=== PATIENT | female | born 1940 | race Caucasian/White ===

== ENCOUNTER 2016-11-14 07:36 | Day surgery (SDC) | payer MEDICARE, OTHER ==
--- NOTE | ~2016-11-14 | OP ---
Record Of Operation [facility] [address] [place]. [address] NAME: FRANCOIS FITCH : 39 STATUS : [facility]#: [id number] AGE: 76 ADM/REG DATE : 11/14/16 MR#: [id number] REPORT SERV DATE: 11/19/16 DICTATED BY: MAO HERRMANN DATE: 11/19/16 REPORT STATUS : Draft TRANSCRIBED BY: GENNY DATE: 11/19/16 DATE OF PROCEDURE: 11/14/2016 PREOPERATIVE DIAGNOSIS: Symptomatic cholelithiasis. POSTOPERATIVE DIAGNOSIS: Chronic cholecystitis and symptomatic cholelithiasis. PROCEDURE: Laparoscopic cholecystectomy. ATTENDING SURGEON: Mao Herrmann M.D. RESIDENT: Noel Wood M.D. ANESTHESIA: General. ESTIMATED BLOOD LOSS: Approximately 50 mL. IV FLUIDS: Approximately 1500 mL crystalloid. SPECIMEN: Gallbladder. DRAINS: None. COMPLICATIONS: None. FINDINGS: The patient had a chronically inflamed gallbladder with stones noted as well and had omental and peritoneal adhesions, was extremely friable. With dissection, the gallbladder fossa was friable and oozy consistent with chronic cholecystitis. INDICATIONS FOR PROCEDURE: This 76-year-old female, who had intermittent right upper quadrant abdominal pain with nausea and vomiting. There was noted to have cholelithiasis. The above procedure was offered to the patient. Risks, benefits, and alternatives were discussed and she expressed verbal understanding and wished to proceed forward for this elective procedure. DESCRIPTION OF PROCEDURE: After informed consent was obtained, the patient was taken back to operative theater. The patient was laid on the operating table in the supine position. The patient was given adequate analgesia and anesthesia and successfully endotracheally intubated. Surgery site was then prepped and draped in a sterile fashion. A formal time- out was then performed. All appropriate preoperative antibiotics were administered. All present in the operating room were in agreement and would like to proceed forward with the procedure. We began by administering local anesthetic infraumbilically. With then used an Optiview trocar to bluntly gain access into the abdominal cavity. A 12 mm trocar was connected to insufflation pneumoperitoneum and 15 mmHg was achieved. The patient tolerated this well. The laparoscope was introduced into the abdominal cavity, revealed no blood, no bile, no injury to the omentum, small bowel mesentery, gained access to abdominal cavity. Record Of Operation [facility] [address] [place]. [address] NAME: FRANCOIS FITCH : 38 STATUS : [facility] PAT#: [id number] AGE: 76 ADM/REG DATE : 11/14/16 MR#: [id number] REPORT SERV DATE: 11/19/16 DICTATED BY: MAO HERRMANN DATE: 11/19/16 REPORT STATUS : Draft TRANSCRIBED BY: GENNY DATE: 11/19/16 The liver did appear healthy. The gallbladder could be seen distended with omental and peritoneal adhesions consistent with chronic cholecystitis. We then placed an 11 mm trocar in the epigastrium and then two 5 mm trocars in the right upper quadrant. Gallbladder was grasped. A combination of blunt dissection and electrocautery was used to remove the omental and peritoneal adhesions freeing the gallbladder, it was then retracted cephalad. The gallbladder was noted to be friable and there was oozing like bleed from all raw surfaces. We then used a combination of cautery and blunt dissection to circumferentially dissect out the cystic duct and cystic artery. Once a critical view of the cystic duct and gallbladder infundibulum junction was identified as well as cystic artery, circumferential dissection around and you could see the liver plate behind it. We then placed two clips on the stay side, one clip on the go side on our cystic duct and the cystic artery. Both these were sharply transected between the clips. We then used electrocautery to remove the gallbladder from the liver bed. The gallbladder was extremely friable. At the end of our dissection, the gallbladder avulsed from the liver bed inherent to the nature of the case secondary to the chronic cholecystitis and the friability of the gallbladder. The gallbladder was then placed into an Endobag and moved out of the surgical view. We then used electrocautery to obtain hemostasis on the gallbladder fossa. We irrigated out the gallbladder fossa in the right upper quadrant until a clear fluid returned. We then grasped the Endobag and removed the Endobag and the gallbladder from the abdominal cavity and passed off the surgical field. We then removed our epigastric trocar. We then placed a single [id number] stitch at the epigastric trocar site to approximate the fascia and fascia reapproximated very well. Remainder of the trocars were removed. There was no bleeding noted from the anterior abdominal wall. Final trocar was removed, and the abdomen was desufflated adequately. We then reapproximated all skin incision sites with 4-0 Monocryl in a simple interrupted subcuticular stitch fashion, skin was reapproximated well, hemostasis noted to have been achieved. Sterile dressings were then applied, sterile drapes were then broken down. The patient was reversed from anesthesia and successfully extubated in the operating room. The patient was awakened, bowel sounds are stable. The patient transferred to the recovery room in stable condition. DICTATED BY: MD AURELIO Price/GENNY Mao Herrmann M.D. / [id number] CC: John Nick M.D.
[~2016-11-14 07:36] MED LIST: ADVAIR INH; ADVAIR250 INH; AZO CRANBERRY PO; AZO STANDARD PO; BEN25 PO; BISR PR; C2 PO; C5; CELEBREX2 PO; COZAAR100 MG PO; CYANO1000T PO; DDAVP0.1 MG PO; DITRO5 PO; EFFEX75 PO; FLEX PO; FOSAMAX70 MG PO; KLONO1 PO; KRILLOIL PO; L20 PO; LACTAID3000 UNIT OR; LIPITOR10 PO; LORT7 PO; MAX25 PO; MELATONIN5 M1 OR; MOVE FREE ULTRA PO; MYRBETRIQ50 MG PO; NEXIUM40 PO; NORCO1 TA2 PO; NORCO1 TAB PO; NORV10 PO; NYSTATPOW TOP; OMEGA-3 KRILL PO; OSTEO BI-FLEX1 EACH PO; PCET PO; PERCOCET; PREM625 PO; PRESERVISION A1 EAC1 PO; PROAIR HFA INH; QUALAQUIN PO; REQUIP1 PO; SINGULAIR1 PO; TIAZA1 PO; ULTRAM50 PO; VESICARE10 MG PO; VITAMIN D31000 UNIT PO; VOLTAREN1 % TOP
== END 2016-11-14 15:32 | disposition home or self-care (01) ==
LOC: SDC 07:36
PROVIDERS: Specialist
PROC: 0FT44ZZ Resection of Gallbladder, Percutaneous Endoscopic Approach (ICD-10-PCS; principal; 2016-11-14 09:00)
DX: K80.10 Calculus of gallbladder with chronic cholecystitis without obstruction (principal); J45.909 Unspecified asthma, uncomplicated; I12.9 Hypertensive chronic kidney disease with stage 1 through stage 4 chronic kidney disease, or unspecified chronic kidney disease; K21.9 Gastro-esophageal reflux disease without esophagitis; N18.3 Chronic kidney disease, stage 3 (moderate); F41.9 Anxiety disorder, unspecified; M19.90 Unspecified osteoarthritis, unspecified site; G25.81 Restless legs syndrome; Z87.440 Personal history of urinary (tract) infections; Z90.49 Acquired absence of other specified parts of digestive tract; Z98.51 Tubal ligation status; Z96.651 Presence of right artificial knee joint; Z98.890 Other specified postprocedural states; Z82.49 Family history of ischemic heart disease and other diseases of the circulatory system; Z83.3 Family history of diabetes mellitus; Z88.0 Allergy status to penicillin; Z96.1 Presence of intraocular lens; Z90.710 Acquired absence of both cervix and uterus; Z98.1 Arthrodesis status; Z79.52 Long term (current) use of systemic steroids; Z79.891 Long term (current) use of opiate analgesic; Z79.899 Other long term (current) drug therapy; Z87.442 Personal history of urinary calculi; Z98.41 Cataract extraction status, right eye; Z98.42 Cataract extraction status, left eye
CPT/HCPCS: 88304; J0690; J1170; J2250; J2405; J2710; J3010

== ENCOUNTER 2016-11-20 08:20 | Inpatient (IN) | payer MEDICARE, OTHER ==
[2016-11-11 15:54] LABS: ASCORBIC ACID (UR NOT ORDER) NEG (NEG); BILIRUBIN, URINE NEGATIVE (NEG); KETONE, URINE NEGATIVE (NEG); WBC (NOT ORDERED) (RFLEX) 3 (0-5)
[2016-11-11 15:56] LABS: LEUKOCYTE ESTERASE(NOT OR TRACE (NEG)
[2016-11-11 17:38] LABS: BASOPHILS 0.8 %; BASOPHILS ABSOLUTE 0.06 10/3/uL (0.0-0.16); EOSINOPHILS 1.3 %; HEMOGLOBIN 12.2 g/dL (12.0-16.0); IMMATURE GRANULOCYTES 0.4 %; IMMATURE GRANULOCYTES ABSOLUTE 0.03 10/3/uL (0.0-0.11); LYMPHOCYTES 12.4 %; LYMPHOCYTES ABSOLUTE 0.98 10/3/uL (0.67-4.30); MEAN CORPUSCULAR HEMOGLOB 27.4 pg (26.0-34.0); MEAN PLATELET VOLUME 9.9 fL (9.2-13.0); MONOCYTES 1.9 %; MONOCYTES ABSOLUTE 0.15 10/3/uL (0.21-1.20); NEUTROPHILS 83.2 %; NEUTROPHILS ABSOLUTE 6.56 10/3/uL (2.02-8.40); PLATELET COUNT 270 10/3/uL (150-400); RED CELL COUNT 4.45 10/6/uL (4.0-5.6); WHITE BLOOD CELLS 7.9 10/3/uL (4.5-10.5)
[2016-11-11 17:39] LABS: HEMATOCRIT 38.2 % (36.0-48.0); MANUAL DIFF NO %; MEAN CORPUS HGB CONC 31.9 g/dL (32.0-36.0); MEAN CORPUSCULAR VOLUME 85.8 fL (80-100)
[2016-11-11 18:04] LABS: A/G RATIO 1.3 (0.7-1.9); ALKALINE PHOSPHATASE 76 U/L (45-117); CALCIUM, SERUM 9.6 MG/DL (8.5-10.4); CHLORIDE, SERUM 101 MMOL/L (96-112); CO2 (CARBON DIOXIDE) 28 MMOL/L (24-34); CREATININE 1.18 MG/DL (0.55-1.02); GFR AFRICAN AMERICAN 52 ML/MIN (>=60); GFR NON AFRICAN AMERICAN 44 ML/MIN (>=60); GLOBULIN 3.1 G/DL (2.5-4.1); POTASSIUM, SERUM 4.5 MMOL/L (3.5-5.3); SGOT(AST) 15 U/L (5-40); SGPT(ALT) 25 U/L (5-65); SODIUM, SERUM 140 MMOL/L (135-148); TOTAL BILIRUBIN 0.5 MG/DL (0-1.2); TOTAL PROTEIN 7.1 G/DL (6.0-8.5)
[2016-11-11 18:06] LABS: BUN (BLOOD UREA NITROGEN) 37 MG/DL (6-23); GLUCOSE, SERUM 110 MG/DL (60-99)
--- NOTE | ~2016-11-20 | OP ---
Record Of Operation [facility] [address] [place]. [address] NAME: FRANCOIS MARTINEZ : 38 STATUS : ADM IN PAT#: [id number] AGE: 76 ADM/REG DATE : 11/20/16 MR#: [id number] REPORT SERV DATE: 11/21/16 DICTATED BY: RODOLFO YOUNG DATE: 11/20/16 REPORT STATUS : Draft TRANSCRIBED BY: GENNY DATE: 11/20/16 DATE OF PROCEDURE: 11/20/2016 PREOPERATIVE DIAGNOSES: 1. Right shoulder pain. 2. End-stage rotator cuff arthropathy with chronic dysfunctional rotator cuff tear. 3. Acromioclavicular joint osteoarthritis. POSTOPERATIVE DIAGNOSES: 1. Right shoulder pain. 2. End-stage rotator cuff arthropathy with chronic dysfunctional rotator cuff tear. 3. Acromioclavicular joint osteoarthritis. OPERATIVE PROCEDURE: 1. Right reverse total shoulder arthroplasty using Tornier Aequalis reverse total shoulder system. 2. Distal clavicular resection. 3. Humeral head autograft impaction technique. 4. Excision of previously placed suture anchors for attempted rotator cuff repair. IMPLANTS USED: One glenoid base plate, one 36 mm glenosphere with a 10-degree inferior tilt, one 36 mm metaphyseal component, one 9 x 100 mm humeral stem, one 36 x 9 mm polyethylene insert, and then one cement restrictor, as well as four 4.5 mm screws, two locking and two nonlocking of the appropriate size. PROCEDURE: The diagnoses listed above as well as the recommended surgical procedure, risks, and benefits thereof were discussed in full detail with Mr. Martinez and family on the morning of 11/20/2016. The patient and family asked appropriate questions which were answered to their satisfaction. Informed consent was signed, witnessed and placed in the chart. The appropriate upper extremity was marked for confirmation and an interscalene block was placed by the anesthesia team with good success. The patient was then wheeled to the operative arena were general endotracheal anesthesia was administered. The patient was placed in the beachchair positioner with all nonoperative extremities well padded and secured for the duration of the case. The patient received 1 gram of Ancef for perioperative antibiosis. The appropriate operative upper extremity was prepped and draped in a typical orthopedic sterile fashion. A surgical pause was performed confirming both the correct patient as well as proper surgical site and procedure. All present were in agreement. All standard anatomic landmarks as well as the superolateral incision site were demarcated using a sterile marking pen. 15 cc of 0.5% Marcaine with epinephrine was injected into the subcuticular layers along the operative incision site. A 10 blade was then used to make an 8 cm incision in the coronal plane off the lateral border of the acromion. Soft tissues were dissected down sharply to expose the Record Of Operation [address] [address] NAME: FRANCOIS MARTINEZ : 39 STATUS : ADM IN PAT#: [id number] AGE: 76 ADM/REG DATE : 11/20/16 MR#: [id number] REPORT SERV DATE: 11/21/16 DICTATED BY: RODOLFO YOUNG DATE: 11/20/16 REPORT STATUS : Draft TRANSCRIBED BY: EGNNY DATE: 11/20/16 deltotrapezius fascia. Full thickness cutaneous flaps were reflected anteriorly and posteriorly. The acromioclavicular joint was identified and electrocautery was used to skeletonize the distal end of the clavicle. A skid was used to protect those structures inferiorly and an oscillating saw was used to remove the distal most 1 cm of clavicle. All additional osteophytes and sharp bone prominences were removed using a rongeur. A raphe was identified in the anterolateral deltoid and then divided 4 cm distal to the lateral border of the acromion. A marking suture was placed in the distal most extent of the split in the deltoid to avoid further dissection and injury to the axillary nerve or those vessels traveling with it. A full deltoid flap was reflected anteriorly. The remnants of the rotator cuff were identified deep to the deltoid. The patient had a large rotator cuff tear with attritional rupture. There was fatty infiltrate throughout the remaining rotator cuff tissue confirming its dysfunction. At this juncture, the rotator cuff tear was extended and the remnants of the infraspinatus were reflected posteriorly. The biceps tendon was located and found to be highly frayed. A bicipital tenolysis was performed. Next, the humeral head was fully exposed. There was severe arthritic change involving both the humeral head as well as the glenoid. A monoblock cutting guide was placed through the hinge point and down the shaft of the proximal humerus. An oscillating saw was used to make a proximal humeral cut. The suture anchors from the previous rotator cuff repair were visualized and fully removed from the shoulder joint without difficulty. The humeral head was removed and placed on the back table. Cancellous bone was harvested from within to provide for later autograft impaction technique. Next, the playboy retractor was placed under the inferior margin of the glenoid and the humerus was retracted posteriorly and inferiorly out of the way of the glenoid. The bicipital labral complex and all residual labrum was excised using electrocautery. The center point of the glenoid was identified using the anterior inferior referencing guide and a central drill hole was created. A 36 mm reamer was used to ream the glenoid down to a nice healthy bleeding bony surface. Great care was taken to angle the reamer approximately 10 degrees inferiorly and to cheat the central peg hole inferiorly in relation to the overall glenoid. The glenoid was reamed appropriately. At this juncture, the central peg hole was drilled again increasing the size up to 8 mm. The glenoid base plate was then opened and assembled on the back table with its insertion device. The cancellous autograft was impacted into the PEG hole. The glenoid base plate was then placed in its PEG hole and impacted appropriately. An excellent scratch fit was obtained. All four holes were drilled and filled with the appropriately sized holes. Both of these screws obtained excellent bicortical purchase into the base of the corticoid superiorly and down the scapular pillar inferiorly. The base plate was then tested and found to be very secure. A 36 mm glenosphere was then opened and inserted into its Colindres taper. It was impacted down and the Colindres taper was set. The central set screw was then tightened down for secondary security. Next, we returned to the final preparation of the humerus. The diaphyseal reamers were used Record Of Operation [address] [place]. [address] NAME: FRANCOIS MARTINEZ : 38 STATUS : ADM IN [facility]#: [id number] AGE: 76 ADM/REG DATE : 11/20/16 MR#: [id number] REPORT SERV DATE: 11/21/16 DICTATED BY: RODOLFO YOUNG DATE: 11/20/16 REPORT STATUS : Draft TRANSCRIBED BY: GENNY DATE: 11/20/16 in increasing sizes until cortical chatter was obtained. The 36 mm hand metaphyseal reamer was then used next followed by the cheese grater to core out the proximal metaphysis. At this juncture the humeral stem with a 36 mm metaphysis was trialed and found to fit appropriately. These were then opened and assembled on the back table with their insertion devices. A cement restrictor was placed 2 canal diameters distal to the distal most extent of the prosthesis. Pulsatile lavage was used to irrigate the shaft of the humerus. An end tip suction catheter was placed down the shaft of the humerus. Third generation cementation techniques were employed with the cement being mixed under vacuum pressure. Vancomycin was placed in the cement. Next, the cement was placed down the shaft of the humerus and the suction tip catheter was removed. The prosthesis was then placed down the shaft of the humerus with the appropriate retroversion measured with retroversion guide parallel to the forearm. Next, the cement was allowed to harden. The polyethylene liner was tested and the appropriate size was selected. This was opened and impacted into place for a nice snap fit. The glenohumeral joint was then reduced and found to have excellent tension as well as appropriate range of motion and excellent stability. The deep layers were then irrigated with copious amount of pulsatile lavage. The remnants of the rotator cuff were then closed for maximal available coverage of the prosthesis. They were closed with #2 Fiberwire through the actual prosthesis. This gave us a great tie-down point laterally. Next, the deltoid was closed through bone holes on the anterior and lateral borders of the acromion. An excellent closure of the deltoid was obtained. Finally, this layer again was washed with copious amounts of pulsatile lavage and the subcutaneous layers were closed with 2-0 undyed Vicryl. The subcuticular layers were closed in a running Monocryl stitch in the cutaneous layer. Steri-Strips were placed on the skin. Sterile dressing was secured with Metapore tape and the patient was placed in an ultra sling for temporary immobilization. An ice pack was provided. The patient was then awakened from anesthesia without difficult. She was transferred to post-anesthesia care unit in stable condition where her postoperative examination was within normal limits understanding that the interscalene block was still in effect. A lengthy discussion was held with the patient and family detailing all operative findings as well as procedures performed with all questions answered to their satisfaction. CCS/MODL Rodolfo Young M.D. / [id number] CC: Rodolfo Young M.D.
[2016-11-20 09:02] LABS: PROTIME (NOT ORD) 12.6 SEC (12.0-14.5)
[2016-11-21 06:18] LABS: BUN (BLOOD UREA NITROGEN) 37 MG/DL (6-23); CHLORIDE, SERUM 102 MMOL/L (96-112); CO2 (CARBON DIOXIDE) 26 MMOL/L (24-34); CREATININE 1.21 MG/DL (0.55-1.02); GFR AFRICAN AMERICAN 50 ML/MIN (>=60); GFR NON AFRICAN AMERICAN 43 ML/MIN (>=60); GLUCOSE, SERUM 115 MG/DL (60-99); POTASSIUM, SERUM 4.5 MMOL/L (3.5-5.3); SODIUM, SERUM 136 MMOL/L (135-148)
[2016-11-21 06:19] LABS: HEMOGLOBIN 9.1 g/dL (12.0-16.0)
[2016-11-21 06:21] LABS: CALCIUM, SERUM 8.4 MG/DL (8.5-10.4)
[2016-11-22] MEDS ORDERED: ASA5GR PO (14:50)
[2016-11-22] MEDS ORDERED: OXYCON10 PO (15:02)
[2016-11-22] MEDS ORDERED: ZOFRAN4 PO (15:03)
[2016-11-22] MEDS ORDERED: PCET PO (15:03)
== END 2016-11-22 18:57 | disposition home or self-care (01) | DRG 483 ==
LOC: SDC/OF 08:20 → PACU 13:28 → 1SO 15:09
PROVIDERS: Specialist
PROC: 0RRJ00Z Replacement of Right Shoulder Joint with Reverse Ball and Socket Synthetic Substitute, Open Approach (ICD-10-PCS; principal; 2016-11-20 09:30)
PROC: 3E0T3CZ (ICD-10-PCS; 2016-11-20 09:30)
DX: M19.111 Post-traumatic osteoarthritis, right shoulder (principal); I12.9 Hypertensive chronic kidney disease with stage 1 through stage 4 chronic kidney disease, or unspecified chronic kidney disease; S46.011A Strain of muscle(s) and tendon(s) of the rotator cuff of right shoulder, initial encounter; N18.9 Chronic kidney disease, unspecified; M79.7 Fibromyalgia; E66.9 Obesity, unspecified; E78.5 Hyperlipidemia, unspecified; Z68.33 Body mass index [BMI] 33.0-33.9, adult; G25.81 Restless legs syndrome; F41.9 Anxiety disorder, unspecified; K21.9 Gastro-esophageal reflux disease without esophagitis; J45.909 Unspecified asthma, uncomplicated; Z79.899 Other long term (current) drug therapy; Z79.82 Long term (current) use of aspirin; Z79.891 Long term (current) use of opiate analgesic; Z88.0 Allergy status to penicillin
CPT/HCPCS: 36415; 73030-RT; 80048; 80053; 81001; 85014; 85018; 85025; 85610; 86850; 86900; 86901; 87641; 88305; 88311; 93005; 94640; 97110-GP; 97116-GP; 97162-GP; A9270-GY; C1713; C1776; G8978-CL-GP; G8979-CJ-GP; J0690; J2250; J2270; J2370; J2405; J2710; J2795; J3010; J3370